=== PATIENT | male | born 2005 | race Two or more races ===

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

== ENCOUNTER 2023-03-01 10:53 | Emergency (ER) | payer MEDICAID ==
[~2023-03-01] VITALS: Ht 167.6 cm; Wt 59.0 kg
[~2023-03-01 10:53] MED LIST: IBUP-1957 PO
[2023-03-01] MEDS ORDERED: PRED50TA PO (11:14)
[2023-03-01 11:20] VITALS: BP 90/61; TEMP 97.9; O2SAT 99
== END 2023-03-01 11:20 | disposition home or self-care (01) ==
LOC: ER 10:53
DX: L30.9 Dermatitis, unspecified (principal); Z79.899 Other long term (current) drug therapy